=== PATIENT | female | born 1995 | race Caucasian/White ===

== ENCOUNTER 2021-11-15 11:00 | Outpatient (RCR) | payer OTHER | END 2021-11-16 | disposition home or self-care (01) | LOC: PT.GENESIS | DX: M54.50 Low back pain, unspecified (principal) ==

== ENCOUNTER 2022-05-11 10:50 | Outpatient (RCR) | payer OTHER | END 2022-05-16 | disposition home or self-care (01) | LOC: PT.GENESIS | DX: M54.50 Low back pain, unspecified (principal) ==

== ENCOUNTER 2022-06-09 09:45 | Outpatient (RCR) | payer OTHER | END 2022-06-16 | disposition home or self-care (01) | LOC: PT.GENESIS | DX: M54.50 Low back pain, unspecified (principal) ==

== ENCOUNTER 2022-07-12 15:00 | Outpatient (RCR) | payer OTHER | END 2022-07-16 | disposition home or self-care (01) | LOC: PT.GENESIS | DX: M54.50 Low back pain, unspecified (principal) | CPT/HCPCS: G0283-GP ==